=== PATIENT | male | born 1960 | race Hispanic/Latino ===

== ENCOUNTER → 2017-11-18 | Outpatient (CLI) | payer BC | LOC: GMAL 10:55 | PROVIDERS: ATTEND Family Medicine | DX: Z00.00 Encounter for general adult medical examination without abnormal findings (principal) ==

== ENCOUNTER 2018-03-31 05:59 | Day surgery (SDC) | payer BC ==
--- NOTE | 2018-03-17 21:45 | SSS ---
CHIEF COMPLAINT: Need for screening colonoscopy. HISTORY OF PRESENT ILLNESS: Mr. Wolfe is a 57 year-old male who presented to my office today to schedule a routine screening colonoscopy. He is 57 years old. He has never had a colonoscopy. He denies any symptoms referable to his bowels, specifically no abdominal pain, changes in his bowel habits or blood in the stool. Risks and benefits were discussed and he is agreeable with proceeding. PAST MEDICAL HISTORY: 1. Paroxysmal supraventricular tachycardia diagnosed in January of 2013. He subsequently had ablation of the AV dominique slow pathway at the posteroseptal tricuspid anulus by Dr. Oliveira on 12/11/15. 2. Low testosterone. 3. Crushed right hand in 1982. 4. B12 deficiency that is mild with a level in the low 300s in January 2013. 5. Obstructive sleep apnea that is mild diagnosed in . 6. Hypertension (mild). He had nuclear stress test on 03/16/13 that showed an ejection fraction of 65% and no ischemia. PAST SURGICAL HISTORY: 1. Ablation as above. 2. Vasectomy in 1991. 3. Surgery of right hand fracture with crush injury for repair and then to set the bone in 1982. 4. 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 Hendricks in February 2016. CURRENT MEDICATIONS: 1. Aspirin. 2. Lisinopril. ALLERGIES: ATROVENT AND SIMVASTATIN. FAMILY HISTORY: Father has a history of ulcers. Mother at 62 from Alzheimer's. He has 1 brother, Bal, who is an alcoholic and has a history of rheumatic fever. He has 3 sisters, Yoli who at 52 from breast cancer , and Inna and Kaila are in good health. He has Amelie who is a second cousin also in good health. He has 3 daughters, Fadia and [place] are in good health, and one is addicted to illicit drugs. 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 He is and has 3 children. He uses smokeless tobacco. He drinks approximately 1 six pack of beer per month. REVIEW OF SYSTEMS: Negative except as per History of Present Illness. PHYSICAL EXAMINATION: VITAL SIGNS: Blood pressure 130/84 by me, weight 194. GENERAL: He is awake and alert in no acute distress. HEENT: Unremarkable. NECK: Supple. CHEST: Lungs are clear. CARDIOVASCULAR: Regular rate and rhythm without appreciable murmurs. ABDOMEN: Soft, non-tender. RECTAL: Exam is deferred until time of colonoscopy. EXTREMITIES: Without edema. NEUROLOGIC: Nonfocal. ASSESSMENT: 1. Need for screening colonoscopy. PLAN: Outpatient colonoscopy on 03/31/18. [id number] [facility]
[2018-03-31] MEDS ORDERED: LACTATED RINGERS 0 ML ONE (06:46)
[2018-03-31] MEDS ORDERED: LACTATED RINGERS 1,000 ML ONE (06:50)
[2018-03-31] MEDS ORDERED: ceFAZolin SODIUM 1 GM VIAL ONE (06:50)
[2018-03-31] MEDS ORDERED: SODIUM CHL 0.9% 50ML MIN-BAG+ 0 ML IVPB ONE (06:50)
[2018-03-31] MEDS ORDERED: LIDOCAINE 1% 10 ML VIAL INJ ONE (07:00)
[2018-03-31] MEDS ORDERED: PROPOFOL 200 MG/20 ML VIAL IV ONE (07:00)
[2018-03-31] MEDS ORDERED: MIDAZOLAM INJ 2 MG/2 ML VIAL ONE (07:26)
[2018-03-31] MEDS ORDERED: fentaNYL CITRATE INJ 50 MCG/ML AMP ONE (07:26)
[2018-03-31 08:19] VITALS: BP 114/72; TEMP 98; O2SAT 96
--- NOTE | 2018-03-31 08:32 | OP ---
DATE OF PROCEDURE: 03/31/18 PREOPERATIVE DIAGNOSIS: 1. Screening colonoscopy. POSTOPERATIVE DIAGNOSIS: 1. Rare diverticula of the ascending colon. 2. Otherwise normal colonoscopy. PROCEDURE: 1. Colonoscopy. SURGEON: Cyril Sandoval MD. ESTIMATED BLOOD LOSS: None. COMPLICATIONS: No immediate complications. ANESTHESIA: Propofol 200 mg, fentanyl 1 mL and Versed 1 mg administered intravenously via Brodie Eaton CRNA. TECHNIQUE: After informed consent was obtained from the patient, the patient was taken to the Endoscopy Suite and placed in the left lateral decubitus position. Vital signs were monitored throughout the procedure. Supplemental oxygen was administered throughout the procedure. After adequate sedation was obtained, digital rectal examination was performed, which revealed a normal prostate. The colonoscope was then advanced into the patient's rectum and up through the sigmoid, descending, transverse and ascending colon to the level of the cecum. The usual cecal landmarks were noted. The terminal ileum was entered briefly. There was a single diverticula just distal to the cecum and was photographed as was the cecum. Overall, the bowel prep was quite good. The colonoscope was then slowly withdrawn taking great care to try to visualize all mitchell of the colon in a 360 degree fashion. No other abnormalities were noted throughout the entire colon. The colonoscope was retroflexed upon itself and no abnormalities were noted there. The colonoscope was then unretroflexed and air was suctioned out of the patient's rectum. The colonoscope was removed from the patient. The patient tolerated the procedure well and was taken back to the recovery area in good condition. PLAN: Repeat colonoscopy in 8 to 10 years or sooner should symptoms dictate. #[id number] [facility]
== END 2018-03-31 08:45 | disposition home or self-care (01) ==
LOC: AMB 05:59
PROVIDERS: ATTEND Family Medicine
DX: Z12.11 Encounter for screening for malignant neoplasm of colon (principal); K57.30 Diverticulosis of large intestine without perforation or abscess without bleeding; G47.33 Obstructive sleep apnea (adult) (pediatric); I10 Essential (primary) hypertension; Z88.8 Allergy status to other drugs, medicaments and biological substances; Z79.82 Long term (current) use of aspirin; Z79.899 Other long term (current) drug therapy
CPT/HCPCS: 00812; 45378; J2250; J3010; J3490; J7120

== ENCOUNTER → 2018-11-24 | Outpatient (CLI) | payer BC | LOC: GMAL 10:58 | PROVIDERS: ATTEND Family Medicine | DX: Z00.00 Encounter for general adult medical examination without abnormal findings (principal); M25.50 Pain in unspecified joint; M79.7 Fibromyalgia ==

== ENCOUNTER → 2019-06-15 | Outpatient (CLI) | payer BC | LOC: GMAL 10:29 | PROVIDERS: ATTEND Family Medicine | DX: E55.9 Vitamin D deficiency, unspecified (principal) ==